=== PATIENT | male | born 1950 | race Caucasian/White ===

== ENCOUNTER → 2023-03-22 | Emergency (ER) | payer MEDICARE ==
[~2023-03-22] MED LIST: AMOX/K CLAV 875 MG TAB ONE; DOXYCYCLINE 100 MG CAP PO ONE; LIDOCAINE 2% W/EPI 1:200,000 MPF 20 ML VIAL IM ONE; SILVER SULFADIAZINE 1% 25 GM TOP ONE; SMZ./TMP. 800/160 MG TABLET ONE
--- NOTE | 2023-03-22 11:56 | RAD REPORT ---
EXAM DESCRIPTION: RAD - Foot Left 3 View - 03/22/2023 11:45 am CLINICAL HISTORY: PAIN COMPARISON: No comparisons FINDINGS/IMPRESSION: Status post partial amputation of the first toe. 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 No acute fractures identified. Moderate to severe midfoot and hi ndfoot degenerative changes. No radiographic evidence of osteomyelitis. MRI is more sensitive in the acute phase.
--- NOTE | 2023-03-22 13:59 | ER ---
Nurse's Notes [facility] Name: Shaq Torres Age: 72 yrs Sex: Male : 1950 Arrival Date: 03/22/2023 Time: 10:30 Bed 8 Private MD: Diagnosis: Diabetes mellitus due to underlying condition with diabetic nephropathy;Personal history of diabetic foot ulcer;Diabetes mellitus due to underlying condition with foot ulcer Presentation: 03/22 10:43 Chief complaint: Patient states: L foot abscess, noticed it draining yesterday. No ll1 fever. + decreased sensation. Coronavirus screen: Client denies travel out of the [place] in the last 14 days. At this time, the client does not indicate any symptoms associated with coronavirus-19. Ebola Screen: Patient denies travel to an Ebola-affected area in the 21 days before illness onset. Initial Sepsis Screen: Does the patient meet any 2 criteria? No. Patient's initial sepsis screen is negative. Does the patient have a suspected source of infection? Yes: Skin breakdown/wound. Risk Assessment: Do you want to hurt yourself or someone else? Patient reports no desire to harm self or others. Onset of symptoms was March 21, 2023. 10:43 Method Of Arrival: Ambulatory ll1 10:43 Acuity: MISTY 3 ll1 Historical: - Allergies: 10:42 jalepano; ll1 - PMHx: 10:42 Diabetes mellitus; Hypertensive disorder; neuropathy; ll1 - PSHx: 10:42 L foot 1st toe amputation; ll1 - Immunization history:: Adult Immunizations up to date. - Social history:: Smoking status: Patient denies any tobacco usage or history of. - Family history:: not pertinent. Screenin:38 [facility] ED Fall Risk Assessment (Adult) History of falling in the last 3 months, kc6 including since admission No falls in past 3 months (0 pts) Confusion or Disorientation No (0 pts) Intoxicated or Sedated No (0 pts) Impaired Gait Yes (1 pt) Mobility Assist Device Used Yes (1 pt) Altered Elimination No (0 pt) Score/Fall Risk Level 0 - 2 = Low Risk. Abuse screen: Denies threats or abuse. Denies injuries from another. Nutritional screening: No deficits noted. Tuberculosis screening: No symptoms or risk factors identified. Assessment: 11:52 General: Appears in no apparent distress. comfortable, well groomed, well developed, kc6 Behavior is calm, cooperative, appropriate for age. Pain: Complains of pain in left foot. Neuro: Level of Consciousness is awake, alert, obeys commands, Oriented to person, place, time, situation, Appropriate for age. Cardiovascular: Capillary refill < 3 seconds. Respiratory: Airway is patent Trachea midline Respiratory effort is even, unlabored, Respiratory pattern is regular, symmetrical. GI: No signs and/or symptoms were reported involving the gastrointestinal system. : No signs and/or symptoms were reported regarding the genitourinary system. EENT: No signs and/or symptoms were reported regarding the EENT system. Derm: Skin is pink, warm \T\ dry. Abscess located on left foot is quarter sized, has purulent drainage. Musculoskeletal: No signs and/or symptoms reported regarding the musculoskeletal system. Circulation, motion, and sensation intact. Capillary refill < 3 seconds, Range of motion: intact in all extremities. 12:32 Reassessment: Patient appears in no apparent distress at this time. No changes from kc6 previously documented assessment. Patient and/or family updated on plan of care and expected duration. Pain level reassessed. Patient is alert, oriented x 3, equal unlabored respirations, skin warm/dry/pink. Vital Signs: 10:43 BP 173 / 79; Pulse 78; Resp 18; Temp 97.3; Pulse Ox 96% on R/A; Weight 102.51 kg; ll1 Height 5 ft. 11 in. ; Pain 0/10; 11:53 BP 132 / 71; Pulse 68; Resp 16 S; Pulse Ox 94% on R/A; kc6 12:32 BP 147 / 80; Pulse 67; Resp 17 S; Pulse Ox 95% on R/A; kc6 10:43 Body Mass Index 31.52 (102.51 kg, 180.34 cm) ll1 10:43 Pain Scale: Adult ll1 ED Course: 10:31 Patient arrived in ED. rg4 10:32 Fede Singleton MD is Attending Physician. hyun 10:35 Arm band placed on Patient placed in an exam room, on a stretcher. ll1 10:38 Trini Viera RN is Primary Nurse. kc6 10:39 Patient has correct armband on for positive identification. Bed in low position. Call kc6 light in reach. Side rails up X2. Adult w/ patient. Client placed on continuous cardiac and pulse oximetry monitoring. NIBP monitoring applied. 10:45 Triage completed. ll1 11:46 Foot Left 3 View XRAY In Process Unspecified. EDMS 11:52 Patient maintains SpO2 saturation greater than 95% on room air. kc6 13:41 Wound Culture Sent. cp4 13:56 Noman Turpin DPM is Referral Physician. hyun 14:17 Provided Education on: abscess. cp4 14:17 No provider procedures requiring assistance completed. wound care. Patient did not have cp4 IV access during this emergency room visit. Administered Medications: 11:52 Drug: Trimethoprim-Sulfamethoxazole PO (160 mg-800 mg (DS) 1 tablet PO once Route: PO; kc6 13:42 Follow up: Response: No adverse reaction kc6 11:52 Drug: Doxycycline PO 200 mg PO once Route: PO; kc6 13:42 Follow up: Response: No adverse reaction kc6 13:41 Drug: Amoxicillin-Clavulanate PO 875 mg PO once Route: PO; cp4 14:09 Drug: Silver SulfADIAZINE Topical Cream 1 % 1 application Topical once Route: Topical; kc6 Site: wound; Outcome: 13:58 Discharge ordered by . hyun 14:17 Discharged to home ambulatory, cp4 14:17 Condition: stable 14:17 Discharge instructions given to patient, Instructed on discharge instructions, follow up and referral plans. medication usage, Demonstrated understanding of instructions, follow-up care, medications, Prescriptions given X 3, 14:19 Patient left the ED. cp4 Signatures: Dispatcher [employer] EDMS Fede Singleton MD MD cha Garcia, Rubi rg4 Millicent Wyman RN RN ll1 Trini Viera RN RN kc6 Elicia Lanier cp4
--- NOTE | 2023-03-22 13:59 | EDPHYS ---
Physician Documentation [facility] Name: Shaq Torres Age: 72 yrs Sex: Male : 1950 Arrival Date: 03/22/2023 Time: 10:30 Bed 8 Private MD: ED Physician Fede Singleton HPI: 03/22 13:41 This 72 yrs old Male presents to ER via Ambulatory with complaints of Abscess.hyun 13:41 The patient presents with an abscess of the left foot, The patient presents with hyun cellulitis of the left foot. Description: draining, erythematous, fluctuant. Onset: The symptoms/episode began/occurred 3 day(s) ago. Possible cause(s): left [place] , swelling, infected. Associated signs and symptoms: The patient has no apparent associated signs or symptoms. Modifying factors: the symptoms are alleviated by nothing, the symptoms are aggravated by walking. Severity of symptoms: At their worst the symptoms were mild, moderate, in the emergency department the symptoms are unchanged. The patient has experienced similar episodes in the past, multiple times. Historical: - Allergies: 10:42 jalepano; ll1 - PMHx: 10:42 Diabetes mellitus; Hypertensive disorder; neuropathy; ll1 - PSHx: 10:42 L foot 1st toe amputation; ll1 - Immunization history:: Adult Immunizations up to date. - Social history:: Smoking status: Patient denies any tobacco usage or history of. - Family history:: not pertinent. ROS: 13:41 Constitutional: Negative for fever, chills, and weight loss, Eyes: Negative for injury, hyun pain, redness, and discharge, ENT: Negative for injury, pain, and discharge, Neck: Negative for injury, pain, and swelling, Cardiovascular: Negative for chest pain, palpitations, and edema, Respiratory: Negative for shortness of breath, cough, wheezing, and pleuritic chest pain, Abdomen/GI: Negative for abdominal pain, nausea, vomiting, diarrhea, and constipation, Back: Negative for injury and pain, : Negative for injury, bleeding, discharge, and swelling, Skin: Negative for injury, rash, and discoloration, Neuro: Negative for headache, weakness, numbness, tingling, and seizure, Psych: Negative for depression, anxiety, suicide ideation, homicidal ideation, and hallucinations, Allergy/Immunology: Negative for hives, rash, and allergies, Endocrine: Negative for neck swelling, polydipsia, polyuria, polyphagia, and marked weight changes, 13:41 MS/extremity: Positive for decreased range of motion, erythema, pain, swelling, tenderness, of the left foot, Exam: 13:41 Constitutional: This is a well developed, well nourished patient who is awake, alert, hyun and in no acute distress. Head/Face: Normocephalic, atraumatic. Eyes: Pupils equal round and reactive to light, extra-ocular motions intact. Lids and lashes normal. Conjunctiva and sclera are non-icteric and not injected. Cornea within normal limits. Periorbital areas with no swelling, redness, or edema. ENT: Nares patent. No nasal discharge, no septal abnormalities noted. Tympanic membranes are normal and external auditory canals are clear. Oropharynx with no redness, swelling, or masses, exudates, or evidence of obstruction, uvula midline. Mucous membranes moist. Neck: Trachea midline, no thyromegaly or masses palpated, and no cervical lymphadenopathy. Supple, full range of motion without nuchal rigidity, or vertebral point tenderness. No Meningismus. Chest/axilla: Normal chest wall appearance and motion. Nontender with no deformity. No lesions are appreciated. Cardiovascular: Regular rate and rhythm with a normal S1 and S2. No gallops, murmurs, or rubs. Normal PMI, no JVD. No pulse deficits. Respiratory: Lungs have equal breath sounds bilaterally, clear to auscultation and percussion. No rales, rhonchi or wheezes noted. No increased work of breathing, no retractions or nasal flaring. Abdomen/GI: Soft, non-tender, with normal bowel sounds. No distension or tympany. No guarding or rebound. No evidence of tenderness throughout. Back: No spinal tenderness. No costovertebral tenderness. Full range of motion. Male : Normal genitalia with no discharge or lesions. Skin: Warm, dry with normal turgor. Normal color with no rashes, no lesions, and no evidence of cellulitis. Neuro: Awake and alert, GCS 15, oriented to person, place, time, and situation. Cranial nerves II-XII grossly intact. Motor strength 5/5 in all extremities. Sensory grossly intact. Cerebellar exam normal. Normal gait. Psych: Awake, alert, with orientation to person, place and time. Behavior, mood, and affect are within normal limits. 13:41 Musculoskeletal/extremity: Extremities: grossly normal except: pain, ROM: no acute changes, Circulation is intact in all extremities. numbness, decreased sensation, Vital Signs: 10:43 BP 173 / 79; Pulse 78; Resp 18; Temp 97.3; Pulse Ox 96% on R/A; Weight 102.51 kg; ll1 Height 5 ft. 11 in. ; Pain 0/10; 11:53 BP 132 / 71; Pulse 68; Resp 16 S; Pulse Ox 94% on R/A; kc6 12:32 BP 147 / 80; Pulse 67; Resp 17 S; Pulse Ox 95% on R/A; kc6 10:43 Body Mass Index 31.52 (102.51 kg, 180.34 cm) ll1 10:43 Pain Scale: Adult ll1 Procedures: 13:55 I \T\ D: Incision and drainage was performed for an abscess of the left Prepped with [facility] Betadine, Anesthetized with nothing. Incised with #11 blade. Drained moderate amount serosanguinous fluid. Dressing: sterile 4x4 gauze, non-Adherent dressing, the patient tolerated the procedure. MDM: 10:[address] [facility] 13:53 Differential diagnosis: abscess, cellulitis. Data reviewed: vital signs, nurses notes, [facility] radiologic studies, plain films. Consideration of Admission/Observation Escalation of care including admission/observation considered. I considered the following discharge prescriptions or medication management in the emergency department Medications were administered in the Emergency Department. See MAR. Independent interpretation of the following test(s) in the Emergency Department X-Ray: My interpretation is left foot. Test considered but Not performed: X-ray: left foot. Historians other than the Patient: Spouse/Significant Other: , well informed. Care significantly affected by the following chronic conditions: Diabetes, Hypertension, Obesity. 03/22 13:32 Order name: Wound Culture cp4 03/22 11:26 Order name: Foot Left 3 View XRAY; Complete Time: 13:13 [facility] 03/22 11:26 Order name: Dressing - Wound; Complete Time: :52 [facility] 03/22 11:26 Order name: Gloves, Sterile; Complete Time: : [facility] 03/22 11:26 Order name: Setup Suture Tray; Complete Time: 11:52 hyun 03/22 13:41 Order name: Post-op shoe; Complete Time: 14:09 hyun Administered Medications: 11:52 Drug: Trimethoprim-Sulfamethoxazole PO (160 mg-800 mg (DS) 1 tablet PO once Route: PO; kc6 13:42 Follow up: Response: No adverse reaction kc6 11:52 Drug: Doxycycline PO 200 mg PO once Route: PO; kc6 13:42 Follow up: Response: No adverse reaction kc6 13:41 Drug: Amoxicillin-Clavulanate PO 875 mg PO once Route: PO; cp4 14:09 Drug: Silver SulfADIAZINE Topical Cream 1 % 1 application Topical once Route: Topical; kc6 Site: wound; Disposition Summary: 03/22/23 13:58 Discharge Ordered Notes: Location: Home hyun Problem: new hyun Symptoms: have improved hyun Condition: Stable hyun Diagnosis - Diabetes mellitus due to underlying condition with diabetic nephropathy hyun - Personal history of diabetic foot ulcer hyun - Diabetes mellitus due to underlying condition with foot ulcer hyun Followup: hyun - With: Private Physician - When: 2 - 3 days - Reason: Recheck today's complaints, Continuance of care, Re-evaluation by your physician Followup: hyun - With: Noman Turpin DPM - When: 2 - 3 days - Reason: Recheck today's complaints, Continuance of care, Re-evaluation by your physician Discharge Instructions: - Discharge Summary Sheet hyun - Skin Abscess hyun - Diabetes Mellitus and Foot Care hyun - Skin Abscess, [id number] [facility] - Daily Diabetes Mellitus Record [facility] Forms: - Medication Reconciliation Form [facility] - Thank You Letter [facility] - Antibiotic Education [facility] - Prescription Opioid Use [facility] - Patient Portal Instructions [facility] - Leadership Thank You Letter [facility] Prescriptions: - Augmentin 875-125 mg Oral Tablet - take 1 tablet ORAL route every 12 hours for 10 days; 20 tablet; Refills: 0, [facility] Product Selection Permitted - Doxycycline Hyclate 100 mg Oral Tablet - take 1 tablet ORAL route every 12 hours; 20 tablet; Refills: 0, Product [facility] Selection Permitted - Silvadene 1 % Topical cream - Apply to affected area 1 application TOPICAL route every 8 hours; 50 gram; [facility] Refills: 0, Product Selection Permitted Signatures: Dispatcher [employer] Fede Ibarra MD MD cha Lewis, Lynsay, RN RN ll1 Trini Viera RN RN kc6 Elicia Lanier cp4
[2023-03-22 14:43] VITALS: BP 147/80; TEMP 97.3; O2SAT 95
== END ==
LOC: ER 10:30
PROC: 0H9NXZZ Drainage of Left Foot Skin, External Approach (ICD-10-PCS; principal; 2023-03-22)
DX: E11.621 Type 2 diabetes mellitus with foot ulcer (principal); L03.116 Cellulitis of left lower limb; Z86.31 Personal history of diabetic foot ulcer; Z91.018 Allergy to other foods
CPT/HCPCS: 87070; 87077; 87186; 87205

== ENCOUNTER 2024-01-29 08:07 | Day surgery (SDC) | payer MEDICARE ==
[2024-01-24 14:47] LABS: Absolute Basophils 0.1 K/uL (0-0.5); Absolute Eosinophils 0.6 K/uL (0-0.5); Absolute Lymphocytes (CBC) 2.4 K/uL (0.7-4.9); Absolute Monocytes 0.5 K/uL (0.1-1.3); Basophils % 0.8 % (0-1.3); Eosinophils % 6.4 % (0-4.4); Hematocrit 50.2 % (39.6-49.0); Hemoglobin 16.3 g/dL (13.6-17.9); Lymphocytes % 28.5 % (15.3-44.8); MCH 30.9 pg (27.0-35.0); MCHC 32.5 g/dL (32.0-36.0); Monocytes % 5.8 % (3.3-12.3); Neutrophils % 58.5 % (41.7-73.7); Platelets 191 thou/uL (152-406); RBC Red Blood Cell Count 5.29 M/uL (4.33-5.43); Red Cell Distribution Width 14.8 % (12.1-15.2)
[2024-01-24 14:51] LABS: PT Prothrombin Time 10.7 SECONDS (9.4-12.5); Protime INR 0.95
[2024-01-24 15:05] LABS: Anion Gap 6.4 mEq/L (5.0-15.0); Potassium 4.4 mEq/L (3.5-5.1)
--- NOTE | 2024-01-24 18:36 | RAD REPORT ---
EXAMINATION: TWO VIEW CHEST XR CLINICAL INDICATION: Male, 73 years old. [facility] pre op for day surgery TECHNIQUE: 2 view radiographs of the chest were performed. COMPARISON: No prior exam. FINDINGS: The lungs are well inflated and clear. No pneumothorax or sizable effusion. The heart is normal in si ze. Mediastinal contours are unremarkable. IMPRESSION: No acute or significant abnormalities.
[2024-01-29] MEDS: NA CHLORIDE 0.9% 1,000 ML ONE (08:51)
[2024-01-29] MEDS: CIPROFLOXACIN 400mg IV 400 MG/200 ML BAG IV ONE (10:15)
[2024-01-29] MEDS ORDERED: propofoL 200 MG/20 ML VIAL IV ONE (12:31)
[2024-01-29] MEDS ORDERED: ONDANSETRON 4 MG/2 ML VIAL ONE (12:31)
[2024-01-29] MEDS ORDERED: EPHEDRINE SULF 50 MG/ML VIAL ONE (12:31)
[2024-01-29] MEDS ORDERED: FENTANYL CITR 100 MCG/2 ML ONE ×2 (12:31)
[2024-01-29] MEDS ORDERED: GLYCOPYRROLATE 0.2 MG/ML SYR ONE (12:31)
[2024-01-29] MEDS ORDERED: MIDAZOLAM HCL 2 MG/2 ML INJ ONE (12:31)
[2024-01-29] MEDS ORDERED: LIDOCAINE 1% MPF 5 ML VIAL ONE (12:31)
--- NOTE | 2024-01-29 13:24 | P.OP ---
Date of Service: 01/29/24 Preoperative diagnosis: Benign prostatic hypertrophy with lower urinary tract obstruction and symptoms Enlarged prostate, 155 g Postoperative diagnoses: Benign prostatic hypertrophy with lower urinary tract obstruction and symptoms Enlarged prostate, 155 g Principal procedures: Bipolar transurethral resection of the prostate -extensive 155 g Indication for procedure: 73-year-old gentleman with LUTS due to BPH refractory to maximal medical therapy. He was counseled on options for management extensively and ultimately elected to proceed with a bipolar TURP, recognizing he would require potentially extensive resection with a transurethral approach, given the size of his gland greater than 100 to 125 g. Procedure note: The patient was consented in the preoperative holding area before being transferred to the operative suite where general anesthesia was induced. He was given ciprofloxacin for 100 mg IV antimicrobial prophylaxis, and pneumoboots were provided for DVT prophylaxis. He was placed in the lithotomy position, padded and secured to the table appropriately. His genitalia was prepped with Hibiclens and he was draped in standard fashion. The case was begun using urethral sounds to dilate the meatus and fossa navicularis to 30 [place]. Then, using a visual obturator and the 26 [place] bipolar resectoscope sheath, the scope was placed via his urethra and navigated beyond extensive prostatic urethral hypertrophy with high median bar and extended prostatic urethral length, likely measuring around 6 cm or more in order to into the bladder. The bladder was then decompressed of fluid and urine. I then refilled the bladder and surveyed it. While the median lobe of the prostate was invaginating into the region of the posterior wall of the bladder near the trigone, the ureteral orifice ease were at least a couple of centimeters away. As a result, I began with the right ureteral orifice and direct vision and resected the intraluminal component of the median lobe down until it was smooth with the level of the bladder neck. I then continued resection across the central portion of the median lobe to the left portion of the median lobe ensuring the left ureteral orifice was also visible and uninjured. I then continued the resection of the median bar all the way down to the level of the verumontanum in order to create a smooth trough. I then extended the resection and parts into his left lateral lobe. Starting at the bladder neck, that third of the prostate from posterior to anterior was resected. I then moved into the middle one third of the prostate which was similarly resected from posterior to anterior. I then proceeded to the apical aspect of the prostate's one third of adenomatous intrusion and resected that from posterior to anterior. Even with all of that resection, extensive additional resection was required along the entirety of the prostate in order to achieve opening of the prostate and remove the intraluminal projecting tissue coming from the left side. I then turned my attention to the right side of his prostate and completed a similar resection in thirds from the bladder neck into the mid zone of the prostate and then the apical tissue. Even once this was completed, additional resection was required bilaterally because of additional tissue that continued to intrude into the lumen, consistent with his 155 g gland. As a result, after 2.5 hours of resection, I had achieved a smooth continuous trough from the apex of the prostate into the bladder neck that was consistently open even with the bladder completely decompressed. At multiple steps along the way, I had to perform Ilich evacuation to decompress his bladder because the volume of the prostate chips did clog the drainage from the scope. The verumontanum was left intact, and the ureteral orifices were also intact and uninjured. The striated sphincter was also uninjured. As a result, after extensive resection was completed, I then performed complete hemostasis of the prostatic fossa with the bladder near completely decompressed and only a trickle of fluid and flow in in order to find and manage any and all capillary bleeders. Of course fulguration was performed throughout the procedure where necessary, but this was the final step to ensure absolute hemostasis. Once I was confident with the hemostasis, I then surveyed the bladder looking for any prostate chips and remove them under direct vision. I then backed the scope into the bulbar urethra distal to the sphincter and found a lot of additional chips that had fallen into that location, and I remove them as well. I then also confirmed that there was no bleeding after all of this and fulgurated any residual capillary oozing. Once I was satisfied, I then retrograde filled his bladder and removed the resectoscope. I then passed a 24 [place] three-way Guerrero catheter via his urethra into his bladder with ease, and I placed 30 cc of sterile water into the catheter balloon. The catheter was allowed to drain and the urine and fluid was crystal clear. As a result, I connected the catheter to a floor bag and to slow drip CBI. The catheter was then placed on moderate traction taped to his left upper thigh, and he was taken out of the lithotomy position. He was then awakened from general anesthesia before being transferred to a stretcher. He was then transferred to the recovery room in good condition. Complications: None Discharge disposition: He will be standard TURP follow-up pathway with a voiding trial on Sunday in the clinic. Cipro was provided. He will see me subsequently in about 3 months time. He should be instructed to continue the tamsulosin for 1 additional month. He should plan to continue the finasteride for a total of 6 months from the date of surgery. He may benefit from continuing the Myrbetriq for any residual OAB LUTS that may persist despite resection of the prostate.
[2024-01-29] MEDS ORDERED: HYDROCODONE/APAP 5/325 MG TAB ONE (13:35)
[2024-01-29] MEDS ORDERED: PHENAZOPYRIDINE 100MG TAB PO ONE (13:35)
[2024-01-29] MEDS: HYDROCODONE/APAP 5/325 MG TAB PO PRN (13:38)
[2024-01-29] MEDS: PHENAZOPYRIDINE 100MG TAB PO ONE (13:38)
[2024-01-29 14:56] VITALS: BP 136/53; TEMP 97.2; O2SAT 96
== END 2024-01-29 14:50 | disposition home or self-care (01) ==
LOC: OR 08:07
PROVIDERS: ATTEND Urology
PROC: 0VT08ZZ Resection of Prostate, Via Natural or Artificial Opening Endoscopic (ICD-10-PCS; principal; 2024-01-29 09:30)
DX: N40.1 Benign prostatic hyperplasia with lower urinary tract symptoms (principal); N13.8 Other obstructive and reflux uropathy; R97.20 Elevated prostate specific antigen [PSA]
CPT/HCPCS: 85025; 87086; 80048; 36415; 85610; 88305; 71046; 52601; J2704; J2003; J2250; J3010 ×2; J2405; J0744; J7030; 87088